=== PATIENT | male | born 1965 | race Caucasian/White ===

== ENCOUNTER 2017-10-12 09:03 | Emergency (ER) | payer MEDICAID ==
[~2017-10-12] VITALS: Ht 177.8 cm; Wt 113.0 kg
[2017-10-12] MEDS ORDERED: OMEP20CA14 PO (09:13)
[2017-10-12] MEDS ORDERED: LIDOCAINE-MPF 1%, 2ML ONE (09:19)
[2017-10-12] MEDS ORDERED: DIPH,PERTUSS(ACELL),TET VAC/PF 0.5 ML IM-VACC ONE ×2 (09:25→09:30)
[2017-10-12] MEDS ORDERED: LIDOCAINE 2%, 20ML SQ ONE (09:30)
[2017-10-12] MEDS ORDERED: LIDOCAINE-MPF 1%, 5ML INFIL ONE (09:30)
[2017-10-12 10:22] VITALS: BP 126/81
== END 2017-10-12 10:26 | disposition home or self-care (01) ==
LOC: ED 10:20
DX: S91.115A Laceration without foreign body of left lesser toe(s) without damage to nail, initial encounter (principal); F17.210 Nicotine dependence, cigarettes, uncomplicated; W31.89XA Contact with other specified machinery, initial encounter; Y93.39 Activity, other involving climbing, rappelling and jumping off; Y92.098 Other place in other non-institutional residence as the place of occurrence of the external cause; Y99.8 Other external cause status
CPT/HCPCS: 12001; 90471; 90715; 99283